=== PATIENT | male | born 2000 | race Caucasian/White ===

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

== ENCOUNTER 2020-01-12 20:17 | Emergency (ER) | payer MEDICAID, SELFPAY ==
[2020-01-12 20:23] VITALS: BP 147/92; PULSE 80; RESP 16; TEMP 36.7; O2SAT 96
--- NOTE | 2020-01-12 20:33 | ED.GENADUL_ITS ---
Discharge Plan Disposition Patient Disposition: HOME Condition: Stable Discharge Details Chief Complaint: PsychEval Clinical Impression: Depression Primary Care Provider: None,None ED Provider: Ortiz Benedict Home Meds and New Rx's Prescriptions: No Action No Known Home Meds RF: 0 Discharge Instructions Instructions: Depression (ED) Additional Instructions: follow up with [facility] ([facility]) if you feel more depressed or have worsening thoughts of self harm contact [facility] or return to the emergency department Medical Decision Making 19 yo male with history of depression not on meds comes in with increasing thoughts of self harm without specific plan. Denies drug use or alcohol use and has not tried to harm himself recently, in the past has performed superficial cutting. Is caox4, no fevers, normal gait, does appear anxious, no focal motor or sensation deficits. No findings on history or physical exma to suggest underlying medical process, medically cleared to see mental health pt remains stable here, met with mental health and feel is safe for d/c with outpatient follow up which I agree with and pt is comfortable with this plan. Return precautions given. Also care management is going to help get him set up with ap cp Differential Diagnosis Differential Diagnosis: depression, si Lab Data Lab results reviewed: Yes I reviewed the patient's lab results. HPI General Mode of arrival: ambulatory . Date/Time Provider Initiated Documentation: 01/12/20 20:22 . Limitations to Documentation: no limitations . Information obtained by: patient . History of Present Illness 19 year old M presents to the emergency department with the chief complaint of depression, described as moderate, and it has been constant. No relieving factors improve symptom(s), No exacerbating factors reported . Patient did receive the following treatments prior to arrival, none Related Data Home Medications Medication Instructions Recorded Confirmed Unknown [No Known Home Meds] 05/25/19 05/25/19 Allergies Allergy/AdvReac Type Severity Reaction Status Date / Time mint Allergy Severe Unverified 05/25/19 17:31 pineapple Allergy Severe Uncoded 05/25/19 17:31 General Stated Complaint: PsychEval LAWRENCE: 2 Review of Systems All systems reviewed & are unremarkable except as noted in HPI and below Constitutional Constitutional: Denies chills, Denies fever(s) and Denies weakness Eyes Eyes: Denies loss of vision ENT Ears, Nose, Mouth, and Throat: Denies change in voice Cardiovascular Cardiovascular: Denies chest pain and Denies dyspnea Respiratory Respiratory: Denies cough and Denies dyspnea Gastrointestinal Gastrointestinal: Denies abdominal pain, Denies nausea and Denies vomiting Genitourinary Genitourinary: Denies dysuria Musculoskeletal Musculoskeletal: Denies joint swelling Integumentary/Breasts Skin/Breast: Denies rash Neurologic Neurologic: Denies loss of vision and Denies weakness Endocrine Endocrine: Denies cold intolerance and Denies heat intolerance PFSH Social History Smoking/Tobacco Use Status: Current every day Tobacco Type: cigarettes Alcohol Intake: never Drug use: Rarely Substance use type: does not use and marijuana Details: none today Do you feel safe at home: No Exam Const General: anxious Orientation: alert HENMT Head: normal to inspection Ears: external ears normal General nose exam: external nose normal Mouth: moist mucous membranes Eyes General: appearance normal, both eyes and all related structures Neck Neck: normal visual inspection Resp Effort & Inspection: normal respiratory effort and able to speak in complete sentences Cardio Rate: regular rate Skin General skin exam: no rashes or lesions noted Neuro General: alert and oriented x3 Extrem General: normal to inspection Psych Appearance: well kempt Course Vital Signs Vital signs: Vital Signs Temperature 36.7 C 01/12/20 20:23 Pulse 80 01/12/20 20:23 Respiratory Rate 16 01/12/20 20:23 Blood Pressure 147/92 H 01/12/20 20:23 Pulse Oximetry 96 01/12/20 20:23 Temperature 36.7 C 01/12/20 20:23 Temperature Source Temporal Artery Scan 01/12/20 20:23 Pulse 80 01/12/20 20:23 Respiratory Rate 16 01/12/20 20:23 Blood Pressure 147/92 H 01/12/20 20:23 Blood Pressure Position Sitting 01/12/20 20:23 Pulse Oximetry 96 01/12/20 20:23 Oxygen Delivery Method Room Air 01/12/20 20:23 Oxygen Flow Rate 0 01/12/20 20:23 Comment 01/12/20 20:23
[2020-01-12 20:53] LABS: Abs Immature Grans 0.03 k/cumm (0.0-0.09); Absolute Basophil Count 0.03 k/cumm (0.0-0.2); Absolute Eosinophil Count 0.33 k/cumm (0.0-0.7); Absolute Lymphocyte Count 2.32 k/cumm (1.2-3.4); Absolute Neutrophil Count 7.39 k/cumm (1.2-6.7); Basophils % 0.3; HCT 47.2 % (40.0-50.0); HGB 16.6 g/dL (13.5-17.5); Immature Grans % 0.3 %; Lymphocytes % 21.3; Mean Corp. HGB Concentration 35.2 g/dL (32.0-36.0); Mean Corpuscular Hemoglobin 28.6 pg (27.0-33.0); Mean Corpuscular Volume 81.4 fL (80-95); Mean Platelet Volume 9.4 fL (8.0-11.0); Monocytes % 7.3; Neutrophils % 67.8; Platelet Count 355 x1000/uL (130-400)
[2020-01-12 21:11] LABS: Salicylate < 2.8 mg/dL (2.8-20.0)
[2020-01-12 21:12] LABS: Acetaminophen < 2 ug/mL (10-30)
[2020-01-12 21:14] LABS: ALT 49 U/L (16-63); AST 18 U/L (15-37); Albumin 4.5 g/dL (3.4-5.0); Alkaline Phosphatase 97 U/L (46-116); Anion Gap 9.3 mmol/L (3-11); BUN 9 mg/dL (7-18); Bilirubin, Total 0.5 mg/dL (0.2-1.0); CO2 30.7 mmol/L (21.0-32.0); CREATININE 0.81 mg/dL (0.70-1.30); Calcium 9.4 mg/dL (8.5-10.1); Chloride 102 mmol/L (98-107); Glucose 110 mg/dL (74-106); Potassium 4.1 mmol/L (3.5-5.1); Sodium 142 mmol/L (136-145)
[2020-01-12 21:28] LABS: ETHANOL BLOOD < 3.0 mg/dL (<3)
[2020-01-12 22:08] LABS: Bilirubin Negative (Negative); Blood Trace-intact (Negative); Clarity Clear (Clear); Glucose Negative (Negative); Ketones Negative (Negative); Leukocyte Esterase Negative (Negative); Nitrite Negative (Negative); Urobilinogen 0.2 EU/dL (Up TO 0.2); pH 7.5 (5-8)
[2020-01-12 22:17] LABS: Bacteria Few HPF (Negative); Crystals Few Amorphous HPF (Negative); Mucus Moderate (Negative)
[2020-01-12 22:18] LABS: *AMPHETAMINES SCREEN URINE Negative (Negative); *BARBITURATES SCREEN URINE Negative (Negative); *BENZODIAZEPINES SCREEN URINE Negative (Negative); C & S Indicated? No; Cannabinoids THC POSITIVE (Negative); Cocaine Screen,Urine Negative (Negative); METHADONE URINE SCREEN Negative (Negative); OPIATES URINE SCREEN Negative (Negative)
[2020-01-12 22:22] LABS: Tricyclic Antidepressants Negative (Negative)
--- NOTE | 2020-01-12 22:22 | CMPROGNOTE_ITS ---
- If Service Date Differs Date of service: 01/12/20 Time of Service: 22:22 Care Management Progress Note Pedro Luis is a 19 year old male who presents in the ED for suicidal ideation and anxiety. He meets with an [facility] screener and is able to enter into a safety plan. CM meets with Pedro Luis as he does not have a primary care physician. A referral is made on his behalf with [facility] to establish care.
--- NOTE | 2020-01-12 22:32 | PDOC.MHCN ---
Date of service: 01/12/20 Time of Service: 22:32 Mental Health Crisis Note Presenting Issue How did you arrive at the ED and why did you come: Patient arrives to [facility] with c/c of suicidal ideation. Precipitating Factors Patient is a 19yo male that works at [employer] and attends as a sophomore. He reports a history of mixed depression / anxiety and states that tonight he experienced a panic attack after reading problematic social media texts / posts in relation to family and friends. He advises that he was not able to properly cope or process the information, stating that My sister is travelling to [place] and some of my friends are leaving the area. I'm worried about being forgotten and left behind. He states that upon viewing the media, he started experiencing escalating thoughts of self-harm, prompting him to call police as a safety precaution. He states that earlier tonight the anxiety made him feel like locking himself in a bathroom and cutting his arms with a razor - he denies intent to act on these thoughts and does not report any methods. He denies current HI, intent or plan. He reports history of self-harming behaviors (cutting, burning) with no in-patient hospitalizations. He states that last October he was going to attempt jumping [place] bridge [place] in response to feeling overwhelmed with anxiety / stress and advises that a friend convinced him to not go through with it. PCP/rx: No current PCP and no medications reported. No issues with alcohol / substances reported. He reports no current counseling arrangement. Disposition BEHAVIOR: Patient displays a degree of nervous agitation. Speech is sycnopated with somewhat delayed latency of response to certain questions. He is otherwise appropriate in all interactions. EYE CONTACT: Intermittent MOOD: Mixed anxious / depressed AFFECT: Congruent to mood APPETITE: Poor appetite SLEEP(trouble falling/staying asleep: Sleeping disturbance (general). Plan A discussion was held around possible placement options including in-patient and short-term crisis stabilization. He has declined both and states that he is feeling better now compared to earlier in the evening. He reports several close friends on campus that will be able to provide support for him tonight and he advises that he feels safe to return. He is amenable to the idea of seeing a counselor and a referral for a PCP will be submitted by care management. He is open to the on-call clinician performing a brief check-in call tonight. Patient was provided a printed listing of counselors operating in the [facility] and emergency contact information. He has agreed to call appropriate numbers and advise his supports if he feels unsafe. Signature Clinician's Name/Title: Meet Reilly [facility] Emergency Clinician
== END 2020-01-12 22:45 | disposition home or self-care (01) ==
PROVIDERS: Emergency Provider Emergency Medicine
DX: F41.8 Other specified anxiety disorders (principal); R45.851 Suicidal ideations
CPT/HCPCS: 80053; 80307; 99285; 80320; 80329; 81003; 81015; 84443; 85025; 99283

== ENCOUNTER 2020-10-15 06:29 | Emergency (ER) | payer MEDICAID, SELFPAY ==
--- NOTE | 2020-10-15 06:30 | DI.RAD_ITS ---
EXAM: XR FOOT RT COMPLETE CLINICAL HISTORY: pain TECHNIQUE: COMPARISON: No exams were available for comparison FINDINGS: Three views were obtained. There is no evidence of fracture or dislocation. IMPRESSION: RADIATION DOSE DELIVERED: Total DLP
[2020-10-15 06:34] VITALS: BP 147/90; PULSE 82; RESP 16; TEMP 36.1
--- NOTE | 2020-10-15 06:36 | ED.GENADUL_ITS ---
Discharge Plan Disposition Patient Disposition: HOME Condition: Stable Discharge Details Clinical Impression: Foot pain, right Primary Care Provider: None,None ED Provider: Ortiz Benedict Home Meds and New Rx's Prescriptions: New amoxicillin-pot clavulanate [Augmentin] 875-125 mg tablet 1 tab PO BID Qty: 14 RF: 0 Discharge Instructions Additional Instructions: your xray did not show any concerning findings We are treating you for a possible skin infection take 1000mg tylenol and 600mg ibuprofen every 6 hours for pain as needed if you still have symptoms within a week see your primary care provider if you feel more ill, have severe worsening pain or high fevers return to the emergency department Stand Alone Forms: Work Release Medical Decision Making 19 yo male with no chronic medical problems comes in with nontraumatic right foot pain on the dorsal mid foot for 3 hours while at home. Denies falls or known injuries or increased use of the foot. Denies pain elsewhere, no fevers, denies drug or alcohol use. His right foot appears the same as the left without swelling on exam and has full rom, normal sensation and normal pulses. Doubt fx but will obtain xray. HAs no findings to suggest dvt or arterial occlusion. No symptoms or signs on exam to suggest infectious etiologies but does have a scrape on dorsal surface of his distal mid foot with very mild erythema around it. Could be gout or spasm given acute onset of symptoms. Differential Diagnosis Differential Diagnosis: gout, arthritis, spasm Imaging Data Radiologic Study: Attestation: I personally reviewed and interpreted this imaging study as follows: Imaging: X-Ray My impression: no acute findings HPI General Mode of arrival: wheelchair . Date/Time Provider Initiated Documentation: 10/15/20 06:35 . Limitations to Documentation: no limitations . Information obtained by: patient . History of Present Illness 19 year old M presents to the emergency department with the chief complaint of right foot pain, described as moderate, Patient started experiencing this hour(s) (1) and it has been constant. No relieving factors improve symptom(s), No exacerbating factors reported . Patient did receive the following treatments prior to arrival, none Related Data Home Medications Medication Instructions Recorded Confirmed amoxicillin-pot clavulanate 1 tab PO BID #14 tab 10/15/20 [Augmentin] Previous Rx's Medication Instructions Recorded amoxicillin-pot clavulanate 1 tab PO BID #14 tab 10/15/20 [Augmentin] Allergies Allergy/AdvReac Type Severity Reaction Status Date / Time mint Allergy Severe Unverified 10/15/20 06:36 pineapple Allergy Severe Uncoded 10/15/20 06:36 General Stated Complaint: Orthopedic LAWRENCE: 4 Review of Systems All systems reviewed & are unremarkable except as noted in HPI and below Constitutional Constitutional: Denies chills, Denies fever(s) and Denies weakness Cardiovascular Cardiovascular: Denies chest pain and Denies dyspnea Respiratory Respiratory: Denies cough and Denies dyspnea Gastrointestinal Gastrointestinal: Denies abdominal pain, Denies nausea and Denies vomiting Neurologic Neurologic: Denies weakness Psychiatric Psychiatric: Denies depression PFSH Social History Smoking/Tobacco Use Status: Current every day Tobacco Type: cigarettes Smoking risk assessment performed?: Yes Alcohol Intake: current Alcohol Intake frequency: a few times a month Drug use: Rarely Substance use type: does not use and marijuana Details: none today Do you feel safe at home: No Exam Const General: no acute distress Orientation: alert HENMT Head: normal to inspection Ears: external ears normal General nose exam: external nose normal Mouth: moist mucous membranes Eyes General: appearance normal, both eyes and all related structures Neck Neck: normal visual inspection Resp Effort & Inspection: normal respiratory effort and able to speak in complete sentences Cardio Rate: regular rate Skin General skin exam: no rashes or lesions noted Neuro General: patient alert and patient oriented x3 Extrem General: normal to inspection Psych Mental Status: mental status grossly normal Course Vital Signs Vital signs: Vital Signs Temperature 36.1 C L 10/15/20 06:34 Pulse 82 10/15/20 06:34 Respiratory Rate 16 10/15/20 06:34 Blood Pressure 147/90 H 10/15/20 06:34 Temperature 36.1 C L 10/15/20 06:34 Temperature Source Temporal Artery Scan 10/15/20 06:34 Pulse 82 10/15/20 06:34 Respiratory Rate 16 10/15/20 06:34 Blood Pressure 147/90 H 10/15/20 06:34 Blood Pressure Position Sitting 10/15/20 06:34 Oxygen Delivery Method Room Air 10/15/20 06:34 Oxygen Flow Rate 0 10/15/20 06:34 Pain Level 6 10/15/20 06:34
[2020-10-15] MEDS: Ibuprofen 600 MG TAB PO (06:44)
[2020-10-15] MEDS: Amoxicillin 875/Clav. 125 TAB PO (07:03)
--- NOTE | 2020-10-15 07:24 | DI.VRAD_ITS ---
PROCEDURE INFORMATION: Exam: XR Right Foot Complete Exam date and time: 10/15/2020 6:49 AM Age: 19 years old Clinical indication: Pain; Foot; Right TECHNIQUE: Imaging protocol: XR Right foot. Views: 3 or more views. COMPARISON: No relevant prior studies available. FINDINGS: Bones/joints: Normal. Soft tissues: Normal. IMPRESSION: No acute findings. Dictated and Authenticated by: Shady Campoverde MD. Ordering:TASH Alcantar MD
== END 2020-10-15 07:05 | disposition home or self-care (01) ==
PROVIDERS: Emergency Provider Emergency Medicine
DX: M25.571 Pain in right ankle and joints of right foot (principal); L08.9 Local infection of the skin and subcutaneous tissue, unspecified
CPT/HCPCS: 99283; 73630; 99284